=== PATIENT | male | born 1985 | race African-American/Black ===

== ENCOUNTER 2018-05-09 21:53 | Emergency (ER) | payer SELFPAY ==
[2018-05-09] MEDS ORDERED: LIDOCAINE 1%/EPINEPHRINE INJ 20 ML VIAL INJ ONE (23:16)
[2018-05-10] MEDS ORDERED: IBUPROFEN 600 MG TABLET PO ONE (00:10)
[2018-05-10] MEDS ORDERED: ACETAMINOPHEN 325 MG TABLET PO ONE (00:10)
[2018-05-10] MEDS ORDERED: SULFAMETHOXAZOLE/TRIMETHOPRIM 800-160 MG TABLET PO ONE (00:10)
--- NOTE | 2018-05-10 00:12 | ER Document Report ---
ED General - General Chief Complaint: Hand Pain Stated Complaint: FINGER INJURY Time Seen by Provider: 05/09/18 22:42 Notes: Patient is a 32-year-old male without past medical history presents with 1 week of progressively worsening swelling and pain to his right pinky. He states that this started after he was filing his skin on the area and sustained a superficial abrasion or laceration. He notes that the area became increasingly red, swollen and painful since that time. He has a dull, throbbing, constant pain to the area worsened by movement of the digit or touching the area. He is right-hand dominant. He denies any associated fever or constitutional symptoms. He has not seen his general doctor regarding today's concerns. TRAVEL OUTSIDE OF THE [place] IN LAST 30 DAYS: No - Related Data Allergies/Adverse Reactions: No Known Allergies Allergy (Unverified 06/02/16 09:00) Past Medical History - General Information source: Patient - Social History Smoking Status: Current Every Day Smoker Chew tobacco use (# tins/day): No Frequency of alcohol use: Occasional Drug Abuse: None Family History: Reviewed & Not Pertinent Patient has suicidal ideation: No Patient has homicidal ideation: No Renal/ Medical History: Denies: Hx Peritoneal Dialysis Review of Systems - Review of Systems Notes: Constitutional: Negative for fever. HENT: Negative for sore throat. Eyes: Negative for visual changes. Cardiovascular: Negative for chest pain. Respiratory: Negative for shortness of breath. Gastrointestinal: Negative for abdominal pain, vomiting or diarrhea. Genitourinary: Negative for dysuria. Musculoskeletal: Negative for back pain. Skin: Positive for abscess of the right fifth finger Neurological: Negative for headaches, weakness or numbness. 10 point ROS negative except as marked above and in HPI. Physical Exam - Vital signs Vitals: Temp Pulse Resp BP Pulse Ox 97.9 F 63 20 145/95 H 100 05/09/18 21:59 05/09/18 21:59 05/09/18 21:59 05/09/18 21:59 05/09/18 21:59 Interpretation: Hypertensive Notes: PHYSICAL EXAMINATION: GENERAL: Well-appearing, well-nourished and in no acute distress. HEAD: Atraumatic, normocephalic. EYES: Pupils equal round and reactive to light, extraocular movements intact, sclera anicteric, conjunctiva are normal. ENT: nares patent, oropharynx clear without exudates. Moist mucous membranes. NECK: Normal range of motion, supple without lymphadenopathy LUNGS: Breath sounds clear to auscultation bilaterally and equal. No wheezes rales or rhonchi. HEART: Regular rate and rhythm without murmurs. 2+ radial pulses bilaterally. Capillary refill less than 1 second in all digits of the right hand ABDOMEN: Soft, nontender, normoactive bowel sounds. No guarding, no rebound. No masses appreciated. EXTREMITIES: Swelling and induration with associated purulent collection noted between the MCP and PIP of the right fifth digit. No additional extremity findings. NEUROLOGICAL: No focal neurological deficits. Moves all extremities spontaneously and on command. PSYCH: Normal mood, normal affect. SKIN: Warm, Dry, normal turgor, no rashes or lesions noted. Course - Re-evaluation Re-evalutation: 05/10/18 00:10 Patient presents with an abscess above the level of the MCP below the level of the PIP of the right pinky. This started after he created a small laceration well using a Pedegg and has been worsening over the past 1 week. There is an obvious subcutaneous pus collection. A digital block was applied and the area was incised and drained with expression of purulent material. The wound was subsequently irrigated and loculations were removed. Patient had significant relief of his pain thereafter. Full flexion extension at the DIP and PIP as well as the MCP against resistance after drainage of the fluids. No findings at this time point to suggest flexor tenosynovitis. I have extensively reviewed with the patient signs and symptoms that would suggest a progressive infection or flexor tenosynovitis. He has been started on trimethoprim sulfamethoxazole. At this time will discharge with return precautions and follow-up recommendations. Verbal discharge instructions given a the bedside and opportunity for questions given. Medication warnings reviewed. Patient is in agreement with this plan and has verbalized understanding of return precautions and the need for primary care follow-up in the next 24-72 hours. - Vital Signs Vital signs: Temp Pulse Resp BP Pulse Ox 97.6 F 60 17 142/86 H 97 05/10/18 00:15 05/10/18 00:15 05/10/18 00:15 05/10/18 00:15 05/10/18 00:15 Procedures - Incision and Drainage Right hand 5th digit Type: Complex Anesthetic type: 1% Lidocaine mL's of anesthetic: 3 - Digital block Blade size: 11 I&D procedure: Betadine prep applied Incision Method: Incision made by scalpel Amount/type of drainage: 4 cc of purulent drainage Discharge - Discharge Clinical Impression: Abscess of right little finger Condition: Good Disposition: HOME, SELF-CARE Additional Instructions: You were seen for an abscess that required drainage. Please clean this area with soap and water twice daily and apply a topical antibiotic. Dress the area after each cleaning. Please return if you develop fever, vomiting, the pain at the site worsens, you notice spreading redness from the area, or you have any other symptoms that are concerning to you. Prescriptions: Sulfamethoxazole/Trimethoprim [Bactrim Ds Tablet] 2 tab PO BID #28 tablet
[2018-05-10 00:21] VITALS: BP 142/86
== END 2018-05-10 00:29 | disposition home or self-care (01) ==
LOC: ER 21:53
PROC: 0H9FXZZ Drainage of Right Hand Skin, External Approach (ICD-10-PCS; principal; 2018-05-09)
DX: L02.511 Cutaneous abscess of right hand (principal); F17.200 Nicotine dependence, unspecified, uncomplicated
CPT/HCPCS: 99283; 26010; J3490

== ENCOUNTER 2018-09-16 09:34 | Emergency (ER) | payer SELFPAY ==
--- NOTE | 2018-09-16 09:50 | ER Document Report ---
ED Medical Screen (RME) - General Chief Complaint: Abscess Stated Complaint: ABSCESS Time Seen by Provider: 09/16/18 09:44 Notes: 32 years old male presents today with 4-day history of left scrotal pain and swelling to the point that he could not tolerate it today. No discharges. No fever chills or other constitutional symptoms. On examination-the left scrotum has enlarged, extremely tender, tender and large palpable epididymis. Noted. TRAVEL OUTSIDE OF THE [place] IN LAST 30 DAYS: No - Related Data Allergies/Adverse Reactions: No Known Allergies Allergy (Verified 09/16/18 09:37) Past Medical History - Social History Chew tobacco use (# tins/day): No Frequency of alcohol use: Occasional Drug Abuse: None Renal/ Medical History: Denies: Hx Peritoneal Dialysis Physical Exam - Vital signs Vitals: Temp Pulse Resp BP Pulse Ox 98.6 F 104 H 18 131/79 H 97 09/16/18 09:42 09/16/18 09:42 09/16/18 09:42 09/16/18 09:42 09/16/18 09:42 Course - Vital Signs Vital signs: Temp Pulse Resp BP Pulse Ox 98.6 F 104 H 18 131/79 H 97 09/16/18 09:42 09/16/18 09:42 09/16/18 09:42 09/16/18 09:42 09/16/18 09:42
[2018-09-16] MEDS ORDERED: KETOROLAC TROMETHAMINE 60 MG/2 ML SDV IM ONE (09:51)
[2018-09-16] MEDS ORDERED: OXYCODONE-ACETAMINOPHEN 5-325 MG TABLET PO ONE (09:51)
[2018-09-16 10:33] LABS: ABSOLUTE MONOCYTES (AUTO) 1.3 10^3/uL (0.1-1.4); ABSOLUTE NEUT (AUTO) 6.6 10^3/uL (1.7-8.2); BASOPHILS % (AUTO) 0.4 % (0-2); EOSINOPHILS % (AUTO) 0.5 % (0-6); HEMATOCRIT 43.1 % (37.9-51.0); HEMOGLOBIN 14.4 g/dL (13.5-17.0); MEAN CORPUSCULAR HEMOGLOBIN 30.8 pg (27.0-33.4); MEAN CORPUSCULAR HGB CONC 33.6 g/dL (32.0-36.0); MEAN CORPUSCULAR VOLUME 92 fl (80-97); PLATELET COUNT 328 10^3/uL (150-450); RED CELL DISTRIBUTION WIDTH 13.7 % (11.5-14.0); SEGMENTED NEUTROPHILS % (AUTO) 66.1 % (42-78); TOTAL CELLS COUNTED % (AUTO) 100 %
[2018-09-16 10:51] LABS: ALANINE AMINOTRANSFERASE 32 U/L (21-72); ALBUMIN 4.5 g/dL (3.5-5.0); ALKALINE PHOSPHATASE 100 U/L (38-126); ANION GAP 15 (5-19); ASPARTATE AMINO TRANSFERASE 29 U/L (17-59); BILIRUBIN,DIRECT 0.3 mg/dL (0.0-0.4); BILIRUBIN,TOTAL 0.6 mg/dL (0.2-1.3); BLOOD UREA NITROGEN 12 mg/dL (7-20); CALCIUM 10.2 mg/dL (8.4-10.2); CARBON DIOXIDE 25 mmol/L (22-30); CHLORIDE 102 mmol/L (98-107); GLUCOSE 106 mg/dL (75-110); POTASSIUM 4.7 mmol/L (3.6-5.0); TOTAL PROTEIN 8.8 g/dL (6.3-8.2)
[2018-09-16 10:52] LABS: APPEARANCE,URINE TURBID; BILIRUBIN,URINE MODERATE (NEGATIVE); COLOR,URINE YELLOW; GLUCOSE, URINE NEGATIVE (NEGATIVE); KETONES,URINE NEGATIVE (NEGATIVE); LEUKOCYTE ESTERASE,URINE MODERATE (NEGATIVE); NITRITE,URINE NEGATIVE (NEGATIVE); PROTEIN,URINE >=500 mg/dL (NEGATIVE)
--- NOTE | 2018-09-16 11:17 | RADIOLOGY REPORT (SQ) ---
EXAM DESCRIPTION: U/S SCROTUM W/DOPPLER COMPLETED DATE/TIME: 09/16/2018 11:05 am REASON FOR STUDY: Testicular torsion/abscess COMPARISON: None. TECHNIQUE: Static and realtime green scale imaging of the scrotum and testes. Selected color Doppler and spectral images recorded to document blood flow. LIMITATIONS: None. FINDINGS: RIGHT: TESTICLE: Normal size, 5.1 x 3.7 x 2.5 cm in size. Normal echotexture. Normal blood flow. No mass. EPIDIDYMIS: Normal. HYDROCELE OR VARICOCELE: No. HERNIA OR EXTRA-TESTICULAR MASS: No. OTHER: No other significant finding. LEFT: TESTICLE: Normal size, 4.4 x 3.5 x 3.1 cm in size. Normal echotexture. Normal blood flow. No mass. EPIDIDYMIS: Normal size, patient indicates a tender palpable area along the left hemiscrotum which co rrelates with the left epididymal tail which is hyperemic and contains a 6 mm complex cyst, likely re flecting epididymitis and tiny epididymal cyst or abscess HYDROCELE OR VARICOCELE: Trace left hydrocele. No varicocele HERNIA OR EXTRA-TESTICULAR MASS: No. OTHER: No other significant finding. IMPRESSION: No ultrasound evidence of testicular torsion. Hyperemic left epididymal head with increased color flow and 6 mm complex cyst, likely due to epididy mitis with tiny cyst or abscess TECHNICAL DOCUMENTATION: JOB ID: [id number] [employer]- All Rights Reserved Reading location - IP/workstation name: [email or web address]
--- NOTE | 2018-09-16 11:53 | ER Document Report ---
ED General - General Chief Complaint: Abscess Stated Complaint: ABSCESS Time Seen by Provider: 09/16/18 09:44 TRAVEL OUTSIDE OF THE [place] IN LAST 30 DAYS: No - HPI Notes: Patient is a 32-year-old male that presents to the emergency department for chief complaint of scrotal edema. Patient reports 3-4 days of scrotal pain and edema. He states he feels a swollen ball in the posterior aspect of his scrotum. The ball is tender to palpation. He denies any drainage from the area or redness of his skin. He had subjective fevers at home which were improved with Tylenol. He has not taken his temperature. He denies any difficulty urinating or dysuria. He denies any nausea and vomiting. Past Medical History: Negative Past Surgical History: Negative Social History: Daily tobacco. Occasional alcohol. Denies drug use. Family History: Reviewed and noncontributory for presenting illness Allergies: Reviewed, see documented allergy list. REVIEW OF SYSTEMS: CONSTITUTIONAL : No fever No chills No diaphoresis No recent illness EENT: No vision changes No congestion No sore throat CARDIOVASCULAR: No chest pain No palpitations RESPIRATORY: No shortness of breath No cough No difficulty breathing GASTROINTESTINAL: No abdominal pain No nausea No vomiting No diarrhea GENITOURINARY: Scrotal edema No dysuria No hematuria No difficulty urinating MUSCULOSKELETAL: No back pain No leg pain No arm pain SKIN: No rashes No lesions LYMPHATIC: No swollen, enlarged glands. NEUROLOGICAL: No lightheadedness No headache No weakness No paresthesias PSYCHIATRIC: No anxiety No depression PHYSICAL EXAMINATION: Vital signs reviewed, nursing noted reviewed. GENERAL: Well-appearing, well-nourished and in no acute distress. HEAD: Atraumatic, normocephalic. EYES: Eyes appear normal, extraocular movements intact, sclera anicteric, conjunctiva are normal. ENT: nares patent, oropharynx clear without exudates. Moist mucous membranes. NECK: Normal range of motion, supple without lymphadenopathy LUNGS: Breath sounds clear to auscultation bilaterally and equal. No wheezes rales or rhonchi. HEART: Regular rate and rhythm without murmurs ABDOMEN: Soft, nontender, normoactive bowel sounds. No rebound, guarding, or rigidity. No masses appreciated. : Circular tender mass palpated in posterior scrotum. No scrotal edema, crepitus, or erythema. No drainage or open wounds. No penile discharge. EXTREMITIES: Nontender, good range of motion, no pitting or edema. NEUROLOGICAL: No focal neurological deficits. Moves all extremities spontaneously Motor and sensory grossly intact on exam. PSYCH: Normal mood, normal affect. SKIN: Warm, Dry, normal turgor, no rashes or lesions noted on exposed skin - Related Data Allergies/Adverse Reactions: No Known Allergies Allergy (Verified 09/16/18 09:37) Past Medical History - Social History Smoking Status: Current Every Day Smoker Chew tobacco use (# tins/day): No Frequency of alcohol use: Occasional Drug Abuse: None Family History: Reviewed & Not Pertinent Patient has suicidal ideation: No Patient has homicidal ideation: No Renal/ Medical History: Denies: Hx Peritoneal Dialysis Review of Systems - Review of Systems Notes: Dictated Physical Exam - Vital signs Vitals: Temp Pulse Resp BP Pulse Ox 98.6 F 104 H 18 131/79 H 97 09/16/18 09:42 09/16/18 09:42 09/16/18 09:42 09/16/18 09:42 09/16/18 09:42 - Notes Notes: Dictated Course - Re-evaluation Re-evalutation: 09/16/18 11:51 Vitals reviewed. Nursing notes reviewed. Patient is hemodynamically stable and nontoxic-appearing. His lab work shows no leukocytosis or electrolyte derangements. He does have leukocytes on urinalysis. Scrotal ultrasound shows likely epididymitis with small abscess versus cyst. Patient will be started on doxycycline. He will be discharged in stable condition. He will follow with primary care. He will return for new or worsening symptoms. Laboratory 09/16/18 09/16/18 09/16/18 10:00 10:16 10:16 WBC 10.0 RBC 4.70 Hgb 14.4 Hct 43.1 MCV 92 MCH 30.8 MCHC 33.6 RDW 13.7 Plt Count 328 Seg Neutrophils % 66.1 Lymphocytes % 20.0 Monocytes % 13.0 Eosinophils % 0.5 Basophils % 0.4 Absolute Neutrophils 6.6 Absolute Lymphocytes 2.0 Absolute Monocytes 1.3 Absolute Eosinophils 0.0 Absolute Basophils 0.0 Sodium 142.0 Potassium 4.7 Chloride 102 Carbon Dioxide 25 Anion Gap 15 BUN 12 Creatinine 1.05 Est GFR ( Amer) > 60 Est GFR (Non-Af Amer) > 60 Glucose 106 Calcium 10.2 Total Bilirubin 0.6 Direct Bilirubin 0.3 Neonat Total Bilirubin Not Reportable Neonat Direct Bilirubin Not Reportable Neonat Indirect Bili Not Reportable AST 29 ALT 32 Alkaline Phosphatase 100 Total Protein 8.8 H Albumin 4.5 Urine Color YELLOW Urine Appearance TURBID Urine pH 5.0 Ur Specific [place] 1.040 Urine Protein >=500 H Urine Glucose (UA) NEGATIVE Urine Ketones NEGATIVE Urine Blood SMALL H Urine Nitrite NEGATIVE Urine Bilirubin MODERATE H Urine Urobilinogen 4.0 H Ur Leukocyte Esterase MODERATE H Urine WBC (Auto) >182 Urine RBC (Auto) 110 Urine WBC Clumps MANY Urine Mucus (Auto) MANY Urine Ascorbic Acid NEGATIVE Scrotum Ultrasound 09/16/18 09:48 IMPRESSION: No ultrasound evidence of testicular torsion. Hyperemic left epididymal head with increased color flow and 6 mm complex cyst, likely due to epididymitis with tiny cyst or abscess - Vital Signs Vital signs: Temp Pulse Resp BP Pulse Ox 98.6 F 104 H 18 131/79 H 97 09/16/18 09:42 09/16/18 09:42 09/16/18 09:42 09/16/18 09:42 09/16/18 09:42 - Laboratory Result Diagrams: 09/16/18 10:16 09/16/18 10:16 Laboratory results interpreted by me: 09/16/18 09/16/18 10:00 10:16 Total Protein 8.8 H Urine Protein >=500 H Urine Blood SMALL H Urine Bilirubin MODERATE H Urine Urobilinogen 4.0 H Ur Leukocyte Esterase MODERATE H Discharge - Discharge Clinical Impression: Epididymitis, Scrotal swelling Condition: Stable Disposition: HOME, SELF-CARE Instructions: Doxycycline ([facility]), Epididymitis ([facility]), Family Physicians / Practices Additional Instructions: Please return to the emergency department if you have any worsening, or concern of your symptoms. Please return to the emergency department if you develop chest pain, difficulty breathing, severe abdominal pain, or ongoing vomiting. Please follow-up with your primary care physician in 2-3 days and any other recommended physicians. If prescribed, take all medications as directed. If you have any questions or concerns do not hesitate to return the emergency department for evaluation. [] Prescriptions: Doxycycline Hyclate 100 mg PO BID #20 capsule Referrals: [facility] [Provider Group] - Follow up in 3-5 days
[2018-09-16 12:22] VITALS: BP 128/74
== END 2018-09-16 12:22 | disposition home or self-care (01) ==
LOC: ER 09:34
DX: N45.1 Epididymitis (principal); N50.89 Other specified disorders of the male genital organs; F17.210 Nicotine dependence, cigarettes, uncomplicated
CPT/HCPCS: 99284; 96372; 36415; 85025; 80053; 81001; 76870; 93976; J1885

== ENCOUNTER 2018-09-17 08:29 | Emergency (ER) | payer SELFPAY ==
[2018-09-17] MEDS ORDERED: CEFTRIAXONE INJ 1000 MG VIAL IV ONE (09:14)
--- NOTE | 2018-09-17 09:30 | ER Document Report ---
ED GI/ - General Chief Complaint: Groin Pain Stated Complaint: LEFT SIDE PAIN Time Seen by Provider: 09/17/18 08:52 Mode of Arrival: Ambulatory Information source: Patient Notes: Patient is a 32-year-old male who presents to the emergency department with chief complaint of increased scrotal swelling, dysuria, fevers and sweats. Patient reports he was seen here yesterday and diagnosed with epididymitis. Patient states he was put on doxycycline however he has not had a dose yet is he states that he cannot afford it. Patient also complaining of left-sided flank pain. Patient denies any vomiting. Patient is tolerating p.o. without difficulty. Patient denies any chronic medical conditions. TRAVEL OUTSIDE OF THE [place] IN LAST 30 DAYS: No - Related Data Allergies/Adverse Reactions: No Known Allergies Allergy (Verified 09/16/18 09:37) Past Medical History - General Information source: Patient - Social History Smoking Status: Current Every Day Smoker Frequency of alcohol use: Social Drug Abuse: None Family History: Reviewed & Not Pertinent Patient has suicidal ideation: No Patient has homicidal ideation: No - Medical History Medical History: Negative Renal/ Medical History: Denies: Hx Peritoneal Dialysis Surgical Hx: Negative - Immunizations Immunizations up to date: Yes Review of Systems - Review of Systems Constitutional: Chills, Fever Physical Exam - Vital signs Vitals: Temp Pulse Resp BP Pulse Ox 97.9 F 67 20 141/93 H 98 09/17/18 08:36 09/17/18 08:36 09/17/18 08:36 09/17/18 08:36 09/17/18 08:36 - Notes Notes: PHYSICAL EXAMINATION: GENERAL: Well-appearing, well-nourished and in no acute distress. HEAD: Atraumatic, normocephalic. EYES: Pupils equal round and reactive to light, extraocular movements intact, sclera anicteric, conjunctiva are normal. ENT: Nares patent, oropharynx clear without exudates. Moist mucous membranes. NECK: Normal range of motion, supple without lymphadenopathy LUNGS: Breath sounds clear to auscultation bilaterally and equal. No wheezes rales or rhonchi. HEART: Regular rate and rhythm without murmurs ABDOMEN: Soft, nontender, nondistended abdomen. No guarding, no rebound. No masses appreciated. Genitourinary: Scrotal swelling noted, no erythema, large palpable cystic-like structure to left testicle. Musculoskeletal: Normal range of motion, no pitting or edema. No cyanosis. NEUROLOGICAL: Cranial nerves grossly intact. Normal speech, normal gait. Normal sensory, motor exams PSYCH: Normal mood, normal affect. SKIN: Warm, Dry, normal turgor, no rashes or lesions noted. Course - Re-evaluation Re-evalutation: Patient had full workup including scrotal ultrasound done yesterday. Patient diagnosed with epididymitis at that time. Patient has not had the prescriptions filled. CBC and comprehensive metabolic panel unremarkable. Urinalysis done today reveals large leukocyte esterase, greater than 182 white blood cells, 2+ bacteria and white blood cell clumps. Patient also tested positive for chlamydia today. Patient given 1 g of IV ceftriaxone here in the emergency department. Patient reports he is feeling improved after administration of IV fluids. Patient has been afebrile, normotensive and not tachycardic. Patient has not vomited while in the department. Patient will be discharged home in stable condition. Patient given coupons to help him afford his medications. Instructed patient on the importance of medication adherence, patient also instructed to not have any sexual relations for at least 10 days. He should also notify his partners to be treated. Patient verbalizes understanding of same. - Vital Signs Vital signs: Temp Pulse Resp BP Pulse Ox 98.0 F 71 18 141/81 H 100 09/17/18 12:19 09/17/18 12:19 09/17/18 12:19 09/17/18 12:19 09/17/18 12:19 - Laboratory Result Diagrams: 09/17/18 10:13 09/17/18 10:13 Laboratory results interpreted by me: 09/17/18 09/17/18 09/17/18 09:18 09:18 10:13 RBC 4.31 L Hgb 13.2 L Urine Protein >=500 H Urine Blood SMALL H Urine Urobilinogen 4.0 H Ur Leukocyte Esterase LARGE H Chlamydia DNA (PCR) DETECTED H Discharge - Discharge Clinical Impression: Pyelonephritis, Chlamydia Condition: Stable Disposition: HOME, SELF-CARE Additional Instructions: Chlamydia You have a chlamydia infection. Chlamydia is a germ that grows inside the cells of the mucous membranes. It often infects the eyes, urethra, and fallopian tubes. It can cause chronic pain and scar tissue if untreated. Antibiotics are used to treat chlamydia. It's important to take all the medicine even if there are no symptoms. Use condoms to prevent spread of the infection. Because this infection can spread by sexual contact, it's important that your sexual partner be checked before resuming sexual relations. A positive test for chlamydia has to be reported to the health department. Call the doctor or return at once if you develop increasing fever, rash, severe pelvic pain, vaginal bleeding (other than your period), or problems with your bladder or bowels. PYELONEPHRITIS: Your evaluation shows evidence of pyelonephritis. This is an infection in the kidney. Typical symptoms are fever, pain in the flank, pain on urination, and frequent urination. Many cases of pyelonephritis can be treated at home. Hospital care may be necessary for patients who are very ill, or elderly or . Pyelonephritis is treated with antibiotics. Be sure to take all the medication as prescribed. Drink plenty of liquids (about three quarts per day) . You may take acetaminophen for fever. You should feel significantly improved within two days. You should have a recheck of your urine in about one week to insure that the infection is gone. Return for a re-examination if your symptoms worsen in any way -- such as high fever, shaking chills, severe weakness or dizziness, severe pain, or inability to pass your urine. PAIN MEDICATION INJECTION: You have received an injection of a pain medication. You should experience significant pain relief within 45 minutes. This drug is a narcotic - - it will impair your judgement, slow your reaction time and make you sleepy ( as well as relieve your pain). Narcotics also can cause nausea. You should not drive, work with machinery, or perform any task requiring mental alertness until all effects of the medication are gone -- six to eight hours. Do not take any alcohol, or sedatives, and do not take any other medication without checking with your physician. ANTINAUSEA MEDICATION: You have been given a medication to suppress nausea and vomiting. This type of medication can be given as a shot, pill, or suppository. It will usually last for many hours. Pills and shots usually last six to eight hours, suppositories last about 12 hours. For the typical illness, only one or two doses of the medication may be necessary. Mild lightheadedness may occur. This type of medicine can cause drowsiness. Do not drive or operate dangerous machinery while under its influence. Do not mix with alcohol. See your doctor at once if you have muscle spasms or tightness, or uncontrollable motions (particularly of the neck, mouth, or jaw). Persistent vomiting or severe lightheadedness should also be evaluated by the physician. ANTIBIOTIC THERAPY: You have been given an antibiotic prescription. It's important that you take all the medication, unless instructed otherwise by your physician. Failure to complete the entire course can result in relapse of your condition. Common side effects of antibiotics include nausea, intestinal cramping, or diarrhea. Women may develop vaginal yeast infections, and babies can get yeast (thrush) in the mouth following the use of antibiotics. Contact your physician if you develop significant side effects from this medication. Allergy to this antibiotic can result in hives, wheezing, faintness, or itching. If symptoms of allergy occur, stop the medication and call the doctor. ROCEPHIN: You have been given an injection of an antibiotic called Rocephin ( ceftriaxone). Sometimes the injection must be combined with antibiotic pills. For some infections, such as an uncomplicated ear infection, Rocephin provides all the antibiotic that's needed. The antibiotic will be in your body for about two days. For serious infections, we usually repeat doses of Rocephin daily. Side effects are very unusual following a shot. Women may develop vaginal yeast infections, and babies can get yeast (thrush) in the mouth following the use of antibiotics. Contact your physician if you have symptoms with this medication. Allergy to this antibiotic can result in hives, wheezing, faintness, or itching. If symptoms of allergy occur, call the doctor at once. TRIMETHOPRIM-SULFA: You have been given a prescription for trimethoprim-sulfa (TMS, Septra, Bactrim). This is a combination antibiotic of the sulfa class, often used for urinary tract infections, middle ear infections, bronchitis, shigella intestinal infection, and Pneumocystis pneumonia. TMS is usually well-tolerated. Occasional side effects include nausea and decreased appetite. Septra is not recommended for infants less than two months of age. Do not take this medication if you have experienced severe side effects or allergy to sulfa medicine. You should stop this medicine at once and contact your physician if you develop any rash, joint pain, shortness of breath, bruising, or jaundice ( yellow color in the skin), or if you develop any other new or unusual symptoms. USE OF ACETAMINOPHEN (Tylenol): Acetaminophen may be taken for pain relief or fever control. It's much safer than aspirin, offering a wider range of "safe" dosages. It is safe during . Some brand names are Tylenol, Panadol, Datril, Anacin 3, Tempra, and Liquiprin. Acetaminophen can be repeated every four hours. The following are maximum recommended dosages: >89 pounds or adults 650 mg to 900 mg Acetaminophen can be repeated every four hours. Maximum dose not to exceed 4000 mg a day. FOLLOW-UP CARE: If you have been referred to a physician for follow-up care, call the physician s office for an appointment as you were instructed or within the next two days. If you experience worsening or a significant change in your symptoms, notify the physician immediately or return to the Emergency Department at any time for re-evaluation. Your studies today show that you have a chlamydia infection. Please fill all antibiotics as prescribed. Notify all sexual partners. Do not have any sexual contact for 10 days. Prescriptions: Sulfamethoxazole/Trimethoprim [Bactrim Ds Tablet] 1 each PO BID #14 tablet
[2018-09-17] MEDS ORDERED: MORPHINE SULFATE 10 MG/ML INJ IV ONE (09:57)
[2018-09-17] MEDS ORDERED: NORMAL SALINE 1000 ML 1,000 ML IV ONE (09:59)
[2018-09-17 10:11] LABS: APPEARANCE,URINE TURBID; BILIRUBIN,URINE NEGATIVE (NEGATIVE); GLUCOSE, URINE NEGATIVE (NEGATIVE); KETONES,URINE NEGATIVE (NEGATIVE); LEUKOCYTE ESTERASE,URINE LARGE (NEGATIVE); NITRITE,URINE NEGATIVE (NEGATIVE); PROTEIN,URINE >=500 mg/dL (NEGATIVE); URINE SPECIFIC GRAVITY 1.033
[2018-09-17 10:13] LABS: COLOR,URINE YELLOW
[2018-09-17 10:29] LABS: ABSOLUTE LYMPHOCYTES (AUTO) 1.2 10^3/uL (0.5-4.7); ABSOLUTE MONOCYTES (AUTO) 1.1 10^3/uL (0.1-1.4); BASOPHILS % (AUTO) 0.5 % (0-2); EOSINOPHILS % (AUTO) 0.6 % (0-6); HEMATOCRIT 39.2 % (37.9-51.0); HEMOGLOBIN 13.2 g/dL (13.5-17.0); LYMPHOCYTES % (AUTO) 14.8 % (13-45); MEAN CORPUSCULAR HEMOGLOBIN 30.6 pg (27.0-33.4); MEAN CORPUSCULAR HGB CONC 33.6 g/dL (32.0-36.0); MEAN CORPUSCULAR VOLUME 91 fl (80-97); MONOCYTES % (AUTO) 12.9 % (3-13); PLATELET COUNT 338 10^3/uL (150-450); RED BLOOD COUNT 4.31 10^6/uL (4.35-5.55); RED CELL DISTRIBUTION WIDTH 13.6 % (11.5-14.0); SEGMENTED NEUTROPHILS % (AUTO) 71.2 % (42-78); TOTAL CELLS COUNTED % (AUTO) 100 %; WHITE BLOOD COUNT 8.4 10^3/uL (4.0-10.5)
[2018-09-17 10:52] LABS: ANION GAP 13 (5-19); BLOOD UREA NITROGEN 14 mg/dL (7-20); CALCIUM 9.9 mg/dL (8.4-10.2); CARBON DIOXIDE 24 mmol/L (22-30); CHLORIDE 104 mmol/L (98-107); GLUCOSE 105 mg/dL (75-110); POTASSIUM 4.5 mmol/L (3.6-5.0); SODIUM 141.2 mmol/L (137-145)
[2018-09-17 11:37] LABS: CHLAM PCR DETECTED (NOT DETECT); GON PCR NOT DETECTED (NOT DETECT)
[2018-09-17] MEDS ORDERED: AZITHROMYCIN 250 MG TABLET PO ONE (11:57)
[2018-09-17 12:29] VITALS: BP 141/81
== END 2018-09-17 12:28 | disposition home or self-care (01) ==
LOC: ER 08:29
DX: N12 Tubulo-interstitial nephritis, not specified as acute or chronic (principal); A56.19 Other chlamydial genitourinary infection; T36.4X6A Underdosing of tetracyclines, initial encounter; Z91.120 Patient's intentional underdosing of medication regimen due to financial hardship; Z91.14 Patient's other noncompliance with medication regimen; F17.200 Nicotine dependence, unspecified, uncomplicated
CPT/HCPCS: 99284; 96361; 96374; 96375; 36415; 87086; 85025; 80048; 81001; 87491; 87591; J2270; J0696; J7030